=== PATIENT | female | born 1935 | race Caucasian/White ===

== ENCOUNTER → 2016-10-29 | Outpatient (CLI) | payer MEDICARE, OTHER ==
[~2016-10-29] MED LIST: EST025TD TD; POLY17PO6 PO; SMV20T PO
[2016-10-29 09:56] LABS: BASOPHILS % (AUTO) 1 % (0-2); EOSINOPHILS # (AUTO) 0.1 10^3uL; EOSINOPHILS % (AUTO) 2 % (0-4); LYMPHOCYTES # (AUTO) 1.3 X10^3; MEAN CORPUSCULAR HEMOGLOBIN 30.2 PG (26.0-34.0); MEAN CORPUSCULAR HGB CONC 33.5 g/dL (31.0-37.0); MEAN CORPUSCULAR VOLUME 90 FL (80-100); MEAN PLATELET VOLUME 9.9 FL (6.0-9.5); MONOCYTES # (AUTO) 0.5 X10^3; MONOCYTES % (AUTO) 9 % (3-11); NEUTROPHILS # (AUTO) 3.6 X10^3; NEUTROPHILS % (AUTO) 65 % (51-67); PLATELET COUNT 229 10^3uL (150-450); WHITE BLOOD COUNT 5.56 10^3uL (4.0-11.0)
[2016-10-29 10:13] LABS: ALBUMIN 4.5 g/dL (3.4-5.0); ANION GAP 15.2 MEQ/L (3-15); CALCULATED IONIZED CALCIUM 4.4 mg/dL (3.8-4.6)
== END ==
LOC: LAB 09:12
PROVIDERS: ATTEND Obstetrics & Gynecology
DX: N95.0 Postmenopausal bleeding (principal); N94.89 Other specified conditions associated with female genital organs and menstrual cycle
CPT/HCPCS: 36415; 80053; 85025; 93005

== ENCOUNTER 2016-11-04 06:22 | Day surgery (SDC) | payer MEDICARE, OTHER ==
[~2016-11-04] VITALS: Ht 162.6 cm; Wt 55.5 kg
[~2016-11-04 06:22] MED LIST changes: +LACTATED RINGERS 1,000 ML IV SCH; +SODIUM CHLORIDE FLUSH 3 ML SYR IV PRN
[2016-11-04 06:31] VITALS: BP 135/69
[2016-11-04] MEDS ORDERED: LIDOCAINE 1% (XYLOCAINE) 20 ML VIAL ONE (06:51)
[2016-11-04] MEDS ORDERED: ALFENTANIL 1,000 MCG/2 ML AMP IV ONE ×2 (07:19)
[2016-11-04] MEDS ORDERED: KETOROLAC 60 MG/2 ML (TORADOL) VIAL IM ONE ×3 (07:19→07:51)
[2016-11-04] MEDS ORDERED: PROPOFOL 10 MG/ML IV ONE (07:19)
[2016-11-04] MEDS ORDERED: ePHEDrine SULFATE 50 MG/ML 1 ML AMP ONE (07:19)
[2016-11-04] MEDS ORDERED: ePHEDrine SULFATE 50 MG/ML 1 ML AMP IV ONE (07:30)
[2016-11-04 08:23] VITALS: BP 156/65
--- NOTE | 2016-11-04 08:34 | Operative Report (E) ---
Operative Report (E) 11/04/16 08:33 Pre-Operative Diagnosis: PMB, endometrial mass Post-Operative Diagnosis: Same Procedure: Hysteroscopy, D&C Surgeon: Jennyfer China Painter: None Anesthesia: TIVA EBL: 40cc Findings: Stenotic cervix. Thickened, irregular, arborized endometrium. Cavity appears intact and normal. LUZ MARIA LISA MD Nov 04, 2016 08:34
[2016-11-04] MEDS ORDERED: HYDROcodone/APAP 5 MG/325 MG (NORCO) TAB PO PRN (08:35)
--- NOTE | 2016-11-04 08:36 | Discharge Instructions (E) ---
Discharge Instructions Instructions Expect mild bleeding and cramping. Call with severe bleeding >2 pads / hour or other significant problem. We will call you when results from surgery are available. Doctor's Appointment 2 weeks Discharge Diet: Regular LUZ MARIA LISA MD Nov 04, 2016 08:36
[2016-11-04 09:15] VITALS: BP 146/62
--- NOTE | 2016-11-04 09:26 | NUR ---
Dr Burger notified that patient wanted a script for pain meds. Dr Burger wanted patient to take pain medicine here before script written. angeltient did not want pain meds here and is ready to go home. Patient instructed to take IBU and Tylenol for pain at home and if pain not controlled then notify Dr. Burger
--- NOTE | 2016-11-04 13:22 | OPERATIVE REPORT ---
DATE OF OPERATION: 11/04/2016 PRE-OPERATIVE DIAGNOSIS: Post menopausal bleeding and endometrial mass POST-OPERATIVE DIAGNOSIS: Post menopausal bleeding and endometrial mass OPERATIVE PROCEDURE: 1. Hysteroscopy. 2. Dilation and curettage. SURGEON: Loyd Burger MD FILTER SCREEN CLEANER: None ANESTHESIA: Total IV anesthesia ESTIMATED BLOOD LOSS: 40 mL SPECIMEN: Endometrium COMPLICATIONS: None FINDINGS: Intraoperatively the patient was noted to have a stenotic cervix. Once the endometrial cavity was visualized it was noted to have a significantly thickened irregular and arborized endometrium. After curettage, the cavity appeared normal and intact. The remainder of the pelvic exam was normal. DESCRIPTION OF PROCEDURE: After confirming the validity of the informed consent, the patient was transported to the operating suite where she was placed in the dorsal lithotomy position after anesthesia was administered without event. The patient was sterilely prepped and draped in a usual fashion. The bladder was emptied with straight catheter. The cervix was grasped with a single-tooth tenaculum and sounded. The sound was unable to penetrate past the internal os, so the hysteroscope was primed and passed into the cervical cavity with the findings as noted above. With a small amount of hydrodissection, the hysteroscope was passed into the endometrial cavity with the findings as noted above. The hysteroscope was removed and the cervix was dilated slightly with serial dilators. A small sharp curette was used to sample the endometrium in a complete cavity sampling. These curettings were sent for pathologic evaluation. The hysteroscope was again passed into the endometrial cavity with the post curettage findings as noted above. The hysteroscope was removed. The cervix was released and found to be hemostatic. There was very mild cervical bleeding at the completion of the procedure. All needle, sponge, and instrument counts were correct x2. The patient tolerated the procedure well and was transferred to the recovery room in good condition. Her family was updated on the findings and she will be contacted as soon as pathology is available.
--- NOTE | 2016-11-04 13:31 | PAIN MANAGEMENT ---
Date of note: 11/04/2016 This is a 81-year-old patient of Dr. Devon Mahoney and Dr. Burger. It was brought to my attention by the recovering nurse in the recovery room that the patient had a wider looking QRST segment than normal. There was a single lead EKG strip on her chart, that was not of value for comparison. I ordered a 12 lead in the recovery room. It did show a bundle branch block, which accounts for widened segment that we noted and were not able to identify properly on the EKG strips or monitor in the recovery room. I contacted Dr. Mahoney to bring that to his attention Dr. Mahoney. He requested that the patient schedule a routine appointment with him. The patient was informed to do so. Dr. Burger was informed of the developments.
== END 2016-11-04 09:37 | disposition home or self-care (01) ==
LOC: ASC 06:22
PROVIDERS: ATTEND Obstetrics & Gynecology
PROC: 0UDB8ZX Extraction of Endometrium, Via Natural or Artificial Opening Endoscopic, Diagnostic (ICD-10-PCS; principal; 2016-11-04)
DX: C54.1 Malignant neoplasm of endometrium (principal); N95.2 Postmenopausal atrophic vaginitis; R09.89 Other specified symptoms and signs involving the circulatory and respiratory systems; D50.9 Iron deficiency anemia, unspecified; M85.80 Other specified disorders of bone density and structure, unspecified site; K58.9 Irritable bowel syndrome, unspecified
CPT/HCPCS: 58558; 88305; 93005; J7120

== ENCOUNTER 2016-11-04 08:30 | Outpatient (RCR) | payer MEDICARE, OTHER ==
[~2016-11-04 08:30] MED LIST changes: +ALFENTANIL 1,000 MCG/2 ML AMP IV ONE; +KETOROLAC 60 MG/2 ML (TORADOL) VIAL IM ONE; -LACTATED RINGERS 1,000 ML IV SCH; +PROPOFOL 20 ML IV ONE; -SODIUM CHLORIDE FLUSH 3 ML SYR IV PRN; +ePHEDrine SULFATE 50 MG/ML 1 ML AMP ONE
== END 2017-02-02 | disposition home or self-care (01) ==
LOC: DT 08:30
PROVIDERS: ATTEND Family Medicine
DX: Z53.8 Procedure and treatment not carried out for other reasons (principal)